=== PATIENT | female | born 1955 | race African-American/Black ===

== ENCOUNTER 2021-12-21 20:58 | Inpatient (IN) | payer BC, MEDICARE ==
[~2021-12-21] VITALS: Ht 160 cm; Wt 104.3 kg
[2021-12-21] MEDS ORDERED: ACETAMINOPHEN 325MG TABLET PO STA (21:15)
[2021-12-21 21:46] LABS: HEMATOCRIT. 35.8 % (36.0-48.0); HEMOGLOBIN. 11.2 g/dL (12.0-16.0); MEAN CORPUSCULAR VOLUME 70.4 fL (81.0-99.0); PLATELET 508 x1000/uL (130-400); RED BLOOD CELL COUNT 5.09 mill/uL (4.2-5.4); RED CELL DISTRIBUTION WIDTH 13.9 % (11.6-14.6)
[2021-12-21 21:52] LABS: CHLORIDE 105 mEq/L (98-107)
[2021-12-21 21:56] LABS: ETHANOL BLOOD < 10 mg/dL
[2021-12-21 22:01] LABS: CREATINE KINASE 92 IU/L (26-192)
[2021-12-21 22:07] LABS: PLATELET ESTIMATE INCREASED
[2021-12-21] MEDS ORDERED: METHYLPREDNISOLONE 125MG 250 MG in DEXT 5% WATER 100 ML IV ONE (23:00)
[2021-12-21] MEDS: METHYLPREDNISOLONE SOD SUCC 125 MG/2 ML VIAL IV NR (23:02)
[2021-12-22] MEDS: METHYLPREDNISOLONE SOD SUCC 125 MG/2 ML VIAL IV NR (03:43)
[2021-12-22 09:00] VITALS: BP 146/64
[2021-12-22] MEDS ORDERED: ACETAMINOPHEN 325MG TABLET PO PRN (11:15)
[2021-12-22] MEDS ORDERED: ONDANSETRON HCL 4MG/2ML INJ IV PRN (11:15)
[2021-12-22] MEDS ORDERED: CEFTRIAXONE 1 G PREMIX 50 ML IV SCH (11:15)
[2021-12-22 12:00] VITALS: BP 140/69
[2021-12-22] MEDS ORDERED: LACTULOSE 20G/30ML UDC PO NR (12:30)
[2021-12-22] MEDS ORDERED: METHYLPREDNISOLONE SOD SUCC 500 MG in DEXT 5% WATER 100 ML IV NR (13:00)
[2021-12-22] MEDS ORDERED: ENOXAPARIN 30MG/0.3ML SYR SUBCUT SCH (13:15)
[2021-12-22] MEDS ORDERED: VANCOMYCIN 1500MG in DEXTROSE 5% WATER 250ML IV NR (14:00)
[2021-12-22] MEDS: CEFTRIAXONE 1,000 MG in DEXTROSE 5% WATER 50 ML IV SCH (14:32)
[2021-12-22] MEDS ORDERED: LORAZEPAM 2MG/ML CPJ IV NR (16:11)
[2021-12-22 18:00] VITALS: BP 140/67
[2021-12-22 18:22] LABS: CHLORIDE 105 mEq/L (98-107)
[2021-12-22] MEDS ORDERED: PNEUMOCOCCAL 23-VAL P-SAC VAC 0.5 ML IM ONE (18:30)
[2021-12-22] MEDS ORDERED: INFLUENZA VACCINE 05/PF 0.5 ML SYRINGE IM ONE (18:30)
[2021-12-22 18:31] LABS: CREATINE KINASE 116 IU/L (26-192); CREATINE KINASE MB FRACTION < 1.0 ng/mL (0.5-3.6)
[2021-12-22 18:32] LABS: HEMATOCRIT. 32.1 % (36.0-48.0); MEAN CORPUSCULAR VOLUME 70.4 fL (81.0-99.0); MEAN PLATELET VOLUME 7.1 fl (7.4-10.4); PLATELET 437 x1000/uL (130-400); RED BLOOD CELL COUNT 4.56 mill/uL (4.2-5.4); RED CELL DISTRIBUTION WIDTH 13.9 % (11.6-14.6)
[2021-12-22] MEDS: ENOXAPARIN 30MG/0.3ML SYR SUBCUT SCH (18:36)
[2021-12-22 20:02] LABS: PLATELET ESTIMATE INCREASED
[2021-12-23 04:00] VITALS: BP 149/69
[2021-12-23] MEDS: ENOXAPARIN 30MG/0.3ML SYR SUBCUT SCH ×2 (06:54→18:26)
[2021-12-23 08:00] VITALS: BP 152/68
[2021-12-23 08:14] LABS: HEMOGLOBIN. 10.2 g/dL (12.0-16.0); MEAN CORPUSCULAR HEMOGLOBIN 21.9 pg (28.0-32.0); MEAN CORPUSCULAR VOLUME 70.5 fL (81.0-99.0); MEAN PLATELET VOLUME 7.5 fl (7.4-10.4); PLATELET 495 x1000/uL (130-400); RED BLOOD CELL COUNT 4.69 mill/uL (4.2-5.4); RED CELL DISTRIBUTION WIDTH 14.1 % (11.6-14.6)
[2021-12-23 08:28] LABS: CHLORIDE 103 mEq/L (98-107)
[2021-12-23] MEDS ORDERED: LORAZEPAM 2MG/ML CPJ IV PRN ×2 (09:30→14:45)
[2021-12-23] MEDS: VANCOMYCIN 1G PREMIX 200 ML IV SCH ×2 (11:25→11:31)
[2021-12-23 12:00] VITALS: BP 166/68
[2021-12-23] MEDS ORDERED: BISACODYL 10MG SUPP PR PRN (14:45)
[2021-12-23] MEDS ORDERED: CLONIDINE 0.1MG TABLET PO PRN (14:45)
[2021-12-23] MEDS ORDERED: IPRATROPIUM/ALBUTEROL 0.5-3(2.5)MG/3ML NEB HHN PRN (14:45)
[2021-12-23] MEDS ORDERED: DEXTROSE 50% WATER 50ML SYRINGE IV PRN (14:45)
[2021-12-23] MEDS ORDERED: HYDROCODONE/ACETAMINOPHEN 5/325MG TABLET PO PRN (14:45)
[2021-12-23] MEDS: CEFTRIAXONE 1,000 MG in DEXTROSE 5% WATER 50 ML IV SCH (14:59)
[2021-12-23 15:27] LABS: PLATELET ESTIMATE INCREASED
[2021-12-23 16:00] VITALS: BP 139/52
[2021-12-23] MEDS: BLOOD SUGAR DIAGNOSTIC STRIP TEST SCH ×2 (17:20→20:30)
[2021-12-23] MEDS: INSULIN LISPRO 100 UNITS/ML SUBCUT SCH ×2 (17:50→20:30)
[2021-12-23 20:00] VITALS: BP 136/57
[2021-12-23] MEDS: FAMOTIDINE 20MG TABLET PO SCH (20:23)
[2021-12-23] MEDS ORDERED: NALOXONE HCL 0.4MG/ML VIAL IV PRN (22:45)
[2021-12-24] VITALS: BP 139/62
[2021-12-24 03:15] LABS: CLARITY URINE CLEAR (CLEAR); COLOR URINE YELLOW (YELLOW); KETONES URINE NEGATIVE (NEGATIVE); LEUKOCYTE ESTERASE URINE NEGATIVE (NEGATIVE); NITRITE URINE NEGATIVE (NEGATIVE); OCCULT BLOOD URINE NEGATIVE (NEGATIVE); PH URINE 5.5 (4.5-8.0); PROTEIN URINE NEGATIVE (NEGATIVE); SPECIFIC GRAVITY URINE 1.017 (1.005-1.030); UROBILINOGEN URINE 0.2 E.U./dL (0.2-1.0)
[2021-12-24 04:00] VITALS: BP 146/61
[2021-12-24] MEDS: ENOXAPARIN 30MG/0.3ML SYR SUBCUT SCH ×2 (06:15→18:10)
[2021-12-24] MEDS: BLOOD SUGAR DIAGNOSTIC STRIP TEST SCH ×4 (07:20→20:31)
[2021-12-24] MEDS: INSULIN LISPRO 100 UNITS/ML SUBCUT SCH ×4 (07:28→20:31)
[2021-12-24 08:00] VITALS: BP 142/62
[2021-12-24 08:00] LABS: HEMATOCRIT 34.3 % (36.0-48.0); HEMOGLOBIN 10.5 g/dL (12.0-16.0); MEAN CORPUSCULAR HEMOGLOBIN 21.7 pg (28.0-32.0); MEAN CORPUSCULAR VOLUME 70.9 fL (81.0-99.0); PLATELET 414 x1000/uL (130-400); RED BLOOD CELL COUNT 4.84 mill/uL (4.2-5.4)
[2021-12-24 08:22] LABS: CHLORIDE 105 mEq/L (98-107)
[2021-12-24] MEDS: VANCOMYCIN 1GM PMX (XELLIA) 200 ML IV SCH (09:20)
[2021-12-24 12:00] VITALS: BP 131/53
[2021-12-24 16:00] VITALS: BP 140/50
[2021-12-24] MEDS: CEFTRIAXONE 1,000 MG in DEXTROSE 5% WATER 50 ML IV SCH (18:10)
[2021-12-24 20:00] VITALS: BP 120/69
[2021-12-24] MEDS: FAMOTIDINE 20MG TABLET PO SCH (20:30)
[2021-12-25] VITALS: BP 104/59
[2021-12-25 04:00] VITALS: BP 135/66
[2021-12-25 05:45] LABS: BASOPHILS % 0.1 % (0.0-2.0); EOSINOPHILS % 1.5 % (0.0-5.0); HEMATOCRIT. 33.4 % (36.0-48.0); HEMOGLOBIN. 10.5 g/dL (12.0-16.0); LYMPHOCYTES % 11.1 % (20.0-50.0); MEAN CORPUSCULAR HEMOGLOBIN 21.8 pg (28.0-32.0); MEAN CORPUSCULAR VOLUME 69.7 fL (81.0-99.0); MONOCYTES % 12.5 % (2.0-8.0); NEUTROPHILS % 74.8 % (40.0-76.0); PLATELET 444 x1000/uL (130-400); RED CELL DISTRIBUTION WIDTH 14.1 % (11.6-14.6)
[2021-12-25 05:51] LABS: CHLORIDE 108 mEq/L (98-107)
[2021-12-25] MEDS: ENOXAPARIN 30MG/0.3ML SYR SUBCUT SCH ×2 (06:36→17:41)
[2021-12-25] MEDS: BLOOD SUGAR DIAGNOSTIC STRIP TEST SCH ×4 (06:36→21:41)
[2021-12-25] MEDS: INSULIN LISPRO 100 UNITS/ML SUBCUT SCH ×5 (07:50→21:00)
[2021-12-25 08:00] VITALS: BP 132/68
[2021-12-25] MEDS: VANCOMYCIN 1GM PMX (XELLIA) 200 ML IV SCH (09:23)
[2021-12-25] MEDS ORDERED: SULFAMETHOXAZOLE/TRIMETHOPRIM 800/160MG TABLET PO NR (11:15)
[2021-12-25 12:00] VITALS: BP 132/68
[2021-12-25] MEDS: LEVOFLOXACIN 500MG TABLET PO SCH (12:40)
[2021-12-25] MEDS: LACTULOSE 20G/30ML UDC PO PRN (13:44)
[2021-12-25 14:07] LABS: PLATELET ESTIMATE INCREASED
[2021-12-25 16:00] VITALS: BP 150/60
[2021-12-25] MEDS ORDERED: NA PHOS,M-B/NA PHOS,DI-BA ENEMA 118ML PR PRN (16:00)
[2021-12-25] MEDS ORDERED: NA PHOS,M-B/NA PHOS,DI-BA ENEMA 118ML PR NR (16:00)
[2021-12-25 20:00] VITALS: BP 137/78
[2021-12-25] MEDS: SULFAMETHOXAZOLE/TRIMETHOPRIM 800/160MG TABLET PO SCH (21:20)
[2021-12-25] MEDS: FAMOTIDINE 20MG TABLET PO SCH (21:20)
[2021-12-26] VITALS: BP 132/74
[2021-12-26 04:00] VITALS: BP 98/70
[2021-12-26] MEDS: BLOOD SUGAR DIAGNOSTIC STRIP TEST SCH ×4 (06:52→20:00)
[2021-12-26] MEDS: ENOXAPARIN 30MG/0.3ML SYR SUBCUT SCH ×2 (06:52→17:45)
[2021-12-26] MEDS: INSULIN LISPRO 100 UNITS/ML SUBCUT SCH ×4 (07:50→20:05)
[2021-12-26 08:00] VITALS: BP 136/64
[2021-12-26] MEDS: SULFAMETHOXAZOLE/TRIMETHOPRIM 800/160MG TABLET PO SCH ×2 (08:56→20:00)
[2021-12-26] MEDS: LEVOFLOXACIN 500MG TABLET PO SCH (08:57)
[2021-12-26] MEDS: MUPIROCIN 2% OINT 22GM TOP SCH (08:57)
[2021-12-26 12:00] VITALS: BP 135/69
[2021-12-26 16:00] VITALS: BP 132/51
[2021-12-26 20:00] VITALS: BP 133/57
[2021-12-26] MEDS: FAMOTIDINE 20MG TABLET PO SCH (20:00)
[2021-12-27] VITALS: BP 124/60
[2021-12-27 04:00] VITALS: BP 131/55
[2021-12-27] MEDS: ENOXAPARIN 30MG/0.3ML SYR SUBCUT SCH ×2 (05:24→17:50)
[2021-12-27 06:00] LABS: BASOPHILS % 0.2 % (0.0-2.0); HEMATOCRIT. 33.1 % (36.0-48.0); HEMOGLOBIN. 10.2 g/dL (12.0-16.0); LYMPHOCYTES % 11.4 % (20.0-50.0); MEAN CORPUSCULAR HEMOGLOBIN 21.6 pg (28.0-32.0); MEAN CORPUSCULAR VOLUME 69.9 fL (81.0-99.0); MONOCYTES % 8.8 % (2.0-8.0); NEUTROPHILS % 77.6 % (40.0-76.0); PLATELET 415 x1000/uL (130-400); RED BLOOD CELL COUNT 4.74 mill/uL (4.2-5.4); RED CELL DISTRIBUTION WIDTH 14.2 % (11.6-14.6)
[2021-12-27 06:26] LABS: CHLORIDE 108 mEq/L (98-107)
[2021-12-27] MEDS: BLOOD SUGAR DIAGNOSTIC STRIP TEST SCH ×4 (07:23→20:25)
[2021-12-27] MEDS: INSULIN LISPRO 100 UNITS/ML SUBCUT SCH ×4 (07:50→20:26)
[2021-12-27 08:00] VITALS: BP 130/54
[2021-12-27] MEDS: LEVOFLOXACIN 500MG TABLET PO SCH (09:38)
[2021-12-27] MEDS: SULFAMETHOXAZOLE/TRIMETHOPRIM 800/160MG TABLET PO SCH ×2 (09:38→20:25)
[2021-12-27] MEDS: MUPIROCIN 2% OINT 22GM TOP SCH (09:39)
[2021-12-27 12:00] VITALS: BP 120/54
[2021-12-27 16:00] VITALS: BP 130/63
[2021-12-27 20:00] VITALS: BP 130/38
[2021-12-27] MEDS: FAMOTIDINE 20MG TABLET PO SCH (20:25)
[2021-12-28] VITALS: BP 117/49
[2021-12-28 04:00] VITALS: BP 117/49
[2021-12-28] MEDS: BLOOD SUGAR DIAGNOSTIC STRIP TEST SCH ×4 (07:09→20:15)
[2021-12-28] MEDS: ENOXAPARIN 30MG/0.3ML SYR SUBCUT SCH ×2 (07:09→17:58)
[2021-12-28] MEDS: INSULIN LISPRO 100 UNITS/ML SUBCUT SCH ×4 (07:50→21:00)
[2021-12-28 08:00] VITALS: BP 130/57
[2021-12-28] MEDS: MUPIROCIN 2% OINT 22GM TOP SCH (10:24)
[2021-12-28] MEDS: SULFAMETHOXAZOLE/TRIMETHOPRIM 800/160MG TABLET PO SCH ×2 (10:24→20:15)
[2021-12-28] MEDS: LEVOFLOXACIN 500MG TABLET PO SCH (10:24)
[2021-12-28 12:00] VITALS: BP 126/50
[2021-12-28 16:00] VITALS: BP 135/44
[2021-12-28 20:00] VITALS: BP 125/53
[2021-12-28] MEDS: FAMOTIDINE 20MG TABLET PO SCH (20:15)
[2021-12-28] MEDS: LACTULOSE 20G/30ML UDC PO PRN (20:16)
[2021-12-29] VITALS: BP 118/75
[2021-12-29 04:00] VITALS: BP 130/50
[2021-12-29] MEDS: ENOXAPARIN 30MG/0.3ML SYR SUBCUT SCH (05:30)
[2021-12-29] MEDS: BLOOD SUGAR DIAGNOSTIC STRIP TEST SCH ×2 (06:43→12:20)
[2021-12-29] MEDS: INSULIN LISPRO 100 UNITS/ML SUBCUT SCH ×2 (07:50→12:20)
[2021-12-29 08:00] VITALS: BP 133/55
[2021-12-29] MEDS: MUPIROCIN 2% OINT 22GM TOP SCH (09:09)
[2021-12-29] MEDS: LEVOFLOXACIN 500MG TABLET PO SCH (09:09)
[2021-12-29] MEDS: SULFAMETHOXAZOLE/TRIMETHOPRIM 800/160MG TABLET PO SCH (09:10)
[2021-12-29 12:00] VITALS: BP 131/49
[2021-12-29 13:57] VITALS: BP 133/55
== END 2021-12-29 15:30 | DRG 871 ==
LOC: ER 20:58 → 6EST 12-22 01:16 → EDBEDREQDT 12-22 02:22 → EDBEDREQSVC 12-22 02:22 → EDBEDREQTM 12-22 02:22 → EDBEDREQ 12-22 02:22 → ENRESERV 12-22 08:04
PROVIDERS: ADMIT Internal Medicine; ATTEND Internal Medicine
DX: A41.9 Sepsis, unspecified organism (principal); E43 Unspecified severe protein-calorie malnutrition; Z68.41 Body mass index [BMI] 40.0-44.9, adult; G82.20 Paraplegia, unspecified; E87.2 Acidosis; L03.115 Cellulitis of right lower limb; G35 Multiple sclerosis; E66.01 Morbid (severe) obesity due to excess calories; I87.2 Venous insufficiency (chronic) (peripheral); M48.061 Spinal stenosis, lumbar region without neurogenic claudication; S80.822A Blister (nonthermal), left lower leg, initial encounter; M47.817 Spondylosis without myelopathy or radiculopathy, lumbosacral region; M48.07 Spinal stenosis, lumbosacral region; S80.821A Blister (nonthermal), right lower leg, initial encounter; D64.9 Anemia, unspecified; Z20.822 Contact with and (suspected) exposure to COVID-19; T38.0X5A Adverse effect of glucocorticoids and synthetic analogues, initial encounter; R73.9 Hyperglycemia, unspecified; L89.626 Pressure-induced deep tissue damage of left heel; S80.12XA Contusion of left lower leg, initial encounter; S80.11XA Contusion of right lower leg, initial encounter; W18.39XA Other fall on same level, initial encounter; Y93.89 Activity, other specified; Y92.098 Other place in other non-institutional residence as the place of occurrence of the external cause; Y99.8 Other external cause status; Z71.3 Dietary counseling and surveillance; R62.7 Adult failure to thrive; Z60.2 Problems related to living alone
CPT/HCPCS: 36415; 70551; 71045; 72141; 72146; 72148; 80048; 80053; 80202; 80305; 80320; 81003; 82550; 82553; 82962; 83036; 83605; 83880; 84145; 84484; 85025; 85027; 87070; 87077; 87186; 87426; 93005; 93923; 93970; 97022; 97162; 97164; 97166; 97530; 99285; J0696; J1650; J1815; J2060; J2930; J3370; J7040; J7060; G0480

== ENCOUNTER 2022-02-13 07:44 | Emergency (ER) | payer BC ==
[~2022-02-13] VITALS: Ht 170.2 cm; Wt 100.0 kg
[2022-02-13] MEDS ORDERED: HYDROCODONE/ACETAMINOPHEN 5/325MG TABLET PO STA (08:44)
[2022-02-13] MEDS ORDERED: IBUPROFEN 800MG TABLET PO ONE (08:45)
[2022-02-13] MEDS ORDERED: PREGABALIN 75MG CAPSULE PO SCH (08:45)
[2022-02-13 09:51] LABS: BASOPHILS % 0.5 % (0.0-2.0); EOSINOPHILS % 2.6 % (0.0-5.0); HEMATOCRIT. 34.8 % (36.0-48.0); HEMOGLOBIN. 10.8 g/dL (12.0-16.0); LYMPHOCYTES % 19.3 % (20.0-50.0); MEAN CORPUSCULAR VOLUME 70.7 fL (81.0-99.0); MEAN PLATELET VOLUME 7.6 fl (7.4-10.4); MONOCYTES % 8.4 % (2.0-8.0); NEUTROPHILS % 69.2 % (40.0-76.0); PLATELET 320 x1000/uL (130-400); RED BLOOD CELL COUNT 4.92 mill/uL (4.2-5.4); RED CELL DISTRIBUTION WIDTH 15.6 % (11.6-14.6)
[2022-02-13 10:00] LABS: CHLORIDE 105 mEq/L (98-107)
[2022-02-13 13:29] LABS: HEPATITIS B SURFACE ANTIGEN NEGATIVE
[2022-02-13 16:09] LABS: CLARITY URINE CLOUDY (CLEAR); COLOR URINE YELLOW (YELLOW); KETONES URINE NEGATIVE (NEGATIVE); LEUKOCYTE ESTERASE URINE TRACE (NEGATIVE); NITRITE URINE NEGATIVE (NEGATIVE); OCCULT BLOOD URINE NEGATIVE (NEGATIVE); PH URINE 6.5 (4.5-8.0); PROTEIN URINE NEGATIVE (NEGATIVE); SPECIFIC GRAVITY URINE 1.014 (1.005-1.030); UROBILINOGEN URINE 0.2 E.U./dL (0.2-1.0)
[2022-02-13] MEDS ORDERED: IBUP-2029 MT (16:18)
[2022-02-13] MEDS ORDERED: GABA-532 MT (16:18)
[2022-02-13] MEDS ORDERED: HYDROCODONE/ACETAMINOPHEN 5/325MG TABLET PO ONE (16:30)
[2022-02-13 19:02] VITALS: BP 120/65
== END 2022-02-13 20:10 ==
LOC: ER 08:00
DX: G62.9 Polyneuropathy, unspecified (principal); R94.5 Abnormal results of liver function studies; E11.9 Type 2 diabetes mellitus without complications
CPT/HCPCS: 36415; 76705; 80053; 81003; 85025; 86705; 86709; 86803; 87340; 99284